=== PATIENT | female | born 1975 | race American Indian/Alaskan Native ===

== ENCOUNTER 2017-03-25 08:48 | Emergency (ER) | payer BC, MEDICAID ==
[2017-03-25] MEDS ORDERED: MOTRIN PO ONE (10:12)
[2017-03-25] MEDS ORDERED: DECADRON IM ONE (10:13)
--- NOTE | 2017-03-25 10:38 | Emergency Department Report ---
Entered by JUAN JAVRIS, acting as scribe for RIMMA REARDON PA. ED ENT HPI - General Chief complaint: Sore Throat Stated complaint: SWOLLEN TONSILS Time Seen by Provider: 03/25/17 09:50 Source: patient Mode of arrival: Ambulatory Limitations: No Limitations - History of Present Illness Initial comments: 42 y/o female smoker presents to the ED c/o sore throat that began this morning. Denies fever and chills. Patient states "I woke up and my tonsils are swollen." Noticed pain this morning when she woke up. Pain is described as 8/10 on a severity scale. No alleviating factors but aggravated with swallowing. Denies taking OTC meds for pain. NKDA. Patient speaking in full sentences. No audible wheezing or stridor during exam or interview MD complaint: sore throat -: This morning Location: throat Severity: severe Severity scale (0 -10): 8 Quality: constant Consistency: constant Improves with: none Worsens with: swallowing Associated Symptoms: sore throat. denies: other (fever, chills) - Related Data Previous Rx's Medication Instructions Recorded Last Taken Type Amoxicillin/K Clav Tab [Augmentin 1 tab PO Q12HR #14 tab 03/25/17 Unknown Rx 875 mg] Benzocaine/Menthol [Cepacol Sore 1 each MM Q4H PRN #1 box 03/25/17 Unknown Rx Throat Lozenge] Ibuprofen [Motrin] 600 mg PO Q8H PRN #30 tablet 03/25/17 Unknown Rx Allergies Allergy/AdvReac Type Severity Reaction Status Date / Time No Known Allergies Allergy Unverified 03/25/17 08:52 ED Dental HPI - General Chief complaint: Sore Throat Stated complaint: SWOLLEN TONSILS Time Seen by Provider: 03/25/17 09:41 Source: patient Mode of arrival: Ambulatory Limitations: No Limitations - History of Present Illness MD complaint: sore throat -: This morning Severity: severe Quality: constant Consistency: constant Improves with: none Worsens with: swallowing - Related Data Previous Rx's Medication Instructions Recorded Last Taken Type Amoxicillin/K Clav Tab [Augmentin 1 tab PO Q12HR #14 tab 03/25/17 Unknown Rx 875 mg] Benzocaine/Menthol [Cepacol Sore 1 each MM Q4H PRN #1 box 03/25/17 Unknown Rx Throat Lozenge] Ibuprofen [Motrin] 600 mg PO Q8H PRN #30 tablet 03/25/17 Unknown Rx Allergies Allergy/AdvReac Type Severity Reaction Status Date / Time No Known Allergies Allergy Unverified 03/25/17 08:52 ED Review of Systems Comment: All other systems reviewed and negative Constitutional: denies: chills, fever ENT: throat pain ED Past Medical Hx - Past Medical History Previous Medical History?: No - Surgical History Additional Surgical History: c section - Social History Smoking Status: Current Every Day Smoker Substance Use Type: Alcohol - Medications Home Medications: Home Medications Medication Instructions Recorded Confirmed Last Taken Type Amoxicillin/K Clav Tab [Augmentin 1 tab PO Q12HR #14 tab 03/25/17 Unknown Rx 875 mg] Benzocaine/Menthol [Cepacol Sore 1 each MM Q4H PRN #1 box 03/25/17 Unknown Rx Throat Lozenge] Ibuprofen [Motrin] 600 mg PO Q8H PRN #30 tablet 03/25/17 Unknown Rx ED Physical Exam - General Limitations: No Limitations General appearance: alert, in no apparent distress - Head Head exam: Present: atraumatic, normocephalic, normal inspection - Eye Eye exam: Present: normal appearance, PERRL, EOMI Pupils: Present: normal accommodation - ENT ENT exam: Present: mucous membranes moist, TM's normal bilaterally, normal external ear exam - Expanded ENT Exam Expanded Ear exam: Present: normal external inspection Mouth exam: Present: normal external inspection Teeth exam: Present: normal inspection Throat exam: Positive: tonsillar erythema (mild), tonsillar exudate (small but visible tonsillar exudates), other (uvula is midline, no peritonsillar abscess) . Negative: R peritonsillar mass, L peritonsillar mass - Neck Neck exam: Present: normal inspection, full ROM, lymphadenopathy (mild anterior adenopathy), other (Mild anterior cervical adenopathy ). Absent: tenderness - Respiratory Respiratory exam: Present: normal lung sounds bilaterally. Absent: wheezes, rales, rhonchi - Cardiovascular Cardiovascular Exam: Present: regular rate, normal rhythm, normal heart sounds. Absent: systolic murmur, diastolic murmur, rubs, gallop - GI/Abdominal GI/Abdominal exam: Present: soft, normal bowel sounds. Absent: tenderness, guarding, rebound - Extremities Exam Extremities exam: Present: normal inspection, full ROM. Absent: tenderness, normal capillary refill, pedal edema, joint swelling, calf tenderness - Back Exam Back exam: Present: normal inspection, full ROM. Absent: tenderness, CVA tenderness (R), CVA tenderness (L), muscle spasm, paraspinal tenderness, vertebral tenderness, rash noted - Neurological Exam Neurological exam: Present: alert, oriented X3 - Psychiatric Psychiatric exam: Present: normal affect, normal mood - Skin Skin exam: Present: warm, dry, intact, normal color ED Course Vital Signs 03/25/17 03/25/17 08:52 10:20 Temperature 98.3 F Pulse Rate 81 Respiratory 18 20 Rate Blood Pressure 133/88 O2 Sat by Pulse 99 Oximetry ED Medical Decision Making - Medical Decision Making A/P: Tonsillitis versus uvulitis 1-symptoms started today, visible small exudates and small amount of uvula injection, patient is able to tolerate fluids by mouth.; No visible BLANKET CUTTER HAND on clincial exam, symptoms just started today. No audible wheezing or stridor, pt speaking in full sentnences. 2-Motrin when necessary, throat lozenges, 7 day course of Augmentin. As per up- to-date group A strep may also cause uvulitis, will treat empirically 3- initial strep swab negative ED Disposition Clinical Impression: Uvulitis Disposition: TO HOME OR SELFCARE Is pt being admited?: No Does the pt Need Aspirin: No Condition: Stable Instructions: Uvulitis (ED) Prescriptions: Amoxicillin/K Clav Tab [Augmentin 875 mg] 1 tab PO Q12HR #14 tab Benzocaine/Menthol [Cepacol Sore Throat Lozenge] 1 each MM Q4H PRN #1 box PRN Reason: Sore Throat Ibuprofen [Motrin] 600 mg PO Q8H PRN #30 tablet PRN Reason: Pain Referrals: [facility] [Provider Group] - 3-5 Days [facility] [Provider Group] - 3-5 Days [facility]ECTOR GAIN[facility] MD [Staff Physician] - 3-5 Days Forms: Accompanied Note, Work/School Release Form(ED) Time of Disposition: 10:35 This documentation as recorded by the scribe,JARVIS,JUAN,accurately reflects the service I personally performed and the decisions made by me,RIMMA REARDON PA.
[2017-03-25 10:46] VITALS: BP 134/92
== END 2017-03-25 10:46 | disposition home or self-care (01) ==
LOC: ED 08:48
DX: K12.2 Cellulitis and abscess of mouth (principal); F17.200 Nicotine dependence, unspecified, uncomplicated
CPT/HCPCS: 87116; 87430; 96372; 99282; J1100